=== PATIENT | female | born 2000 ===

== ENCOUNTER → 2024-07-28 | Outpatient (CLI) | LOC: M SOG 07:55 | PROVIDERS: ATTEND Orthopaedic Surgery Hand Surgery | DX: M25.532 Pain in left wrist (principal) ==

== ENCOUNTER → 2024-09-17 | Outpatient (CLI) | LOC: M SOG 08:05 | PROVIDERS: ATTEND Physician Assistant | DX: M25.532 Pain in left wrist (principal) ==